=== PATIENT | female | born 2000 | race Caucasian/White ===

== ENCOUNTER 2019-08-12 07:21 | Emergency (ER) | payer MEDICAID ==
[~2019-08-12] VITALS: Ht 157.5 cm; Wt 57.6 kg
[2019-08-12 07:22] VITALS: BP 115/76
--- NOTE | 2019-08-12 07:25 | NUR ---
PT W/C ASSISTED TO CHAIR A.
--- NOTE | 2019-08-12 07:55 | NUR ---
PT TAKEN TO XRAY VIA WHEELCHAIR
--- NOTE | 2019-08-12 07:55 | NUR ---
19 Y/O FEMALE C/O LEFT ANKLE PAIN AND SWELLING S/P FALL LAST NIGHT. PT STATES SHE FELL AND FELT HER LEFT ANKLE TWIST. PT STATES SHE HAS BEEN USING RICE TECHNIQUE. NO DEFORMITY NOTED ON ANKLE. SKIN INTACT. MILD SWELLING NOTED. PT STATES SHE TOOK A MOTRIN LAST NIGHT, BUT NO MEDS TODAY.
--- NOTE | 2019-08-12 08:02 | NUR ---
PT BACK FROM XRAY
--- NOTE | 2019-08-12 09:25 | NUR ---
PT PLACED IN LEFT ANKLE AIR SPLINT, CMS WNL BEFORE AND AFTER, PT GIVEN ONE ON ONE INSTRUCTIONS ON PROPER USE OF CRUTCHES, PT DEMENSTRATED PROPER USE OF CRUTCHES, PT STATES THEY FEEL COMFORTABLE USING CRUTCHES, RN AND TAHIRD NOTIFIED.
[2019-08-12 09:32] VITALS: BP 115/76
--- NOTE | 2019-08-12 09:33 | NUR ---
Patient discharged with v/s stable. Written and verbal after care instructions given and explained. Patient alert, oriented and verbalized understanding of instructions. Carried with steady gait. All questions addressed prior to discharge. ID band removed. Patient advised to follow up with PMD. Rx of IBUPROFEN given. Patient educated on indication of medication including possible reaction and side effects. Opportunity to ask questions provided and answered.
== END 2019-08-12 09:33 | disposition home or self-care (01) ==
LOC: MED 07:21
DX: S93.402A Sprain of unspecified ligament of left ankle, initial encounter (principal); X58.XXXA Exposure to other specified factors, initial encounter; Y93.89 Activity, other specified; Y92.89 Other specified places as the place of occurrence of the external cause; Y99.8 Other external cause status
CPT/HCPCS: 73610; 99283; 99285